=== PATIENT | male | born 1990 | race Caucasian/White ===

== ENCOUNTER 2016-11-25 05:48 | Emergency (ER) | payer BC ==
[2016-11-25] MEDS ORDERED: NO HOME MEDICATION XX (05:56)
[2016-11-25] MEDS ORDERED: KEFLEX500 M4 PO (06:56)
[2016-11-25] MEDS ORDERED: BACTRIM DS TAB1 EAC2 PO (06:56)
[2016-11-25] MEDS ORDERED: NORCO 5-325 TA1 EACH PO (06:56)
== END 2016-11-25 07:06 ==
LOC: EDMED 05:48
DX: M79.671 Pain in right foot (principal); R22.41 Localized swelling, mass and lump, right lower limb